=== PATIENT | male | born 1965 | race Caucasian/White ===

== ENCOUNTER 2019-06-04 05:49 | Outpatient (CLI) | payer OTHER ==
[~2019-06-04] VITALS: Ht 182.9 cm; Wt 79.4 kg
[~2019-06-04 05:49] MED LIST: B.AN1CAP; FAMO20TA73; MULT-608; PANT20TA2; PANT40TA; PARO20TA57; PARO40TA47 PO; TMZP15C
[2019-06-04] MEDS ORDERED: PANT40TA3 PO (09:27)
[2019-06-05] MEDS ORDERED: ONDN4T PO (12:40)
[2019-06-05] MEDS ORDERED: CHOL4PAC16 PO (12:40)
== END 2019-06-04 09:32 | disposition home or self-care (01) ==
LOC: PREOP 05:49
PROVIDERS: ATTEND Surgery
DX: Z01.818 Encounter for other preprocedural examination (principal)

== ENCOUNTER 2019-06-05 10:00 | Day surgery (SDC) | payer OTHER ==
[2019-06-05] VITALS (18 sets, daily range): BP systolic 105–135; BP diastolic 57–84
[~2019-06-05] VITALS: Ht 182.9 cm; Wt 79.4 kg
[~2019-06-05 10:00] MED LIST changes: -CHOL4PAC16 PO; -ONDN4T PO
[2019-06-05] MEDS ORDERED: NS IV 500 ML 500 ML ONE (10:11)
[2019-06-05] MEDS ORDERED: NS IV 500 ML 500 ML IV PRN (10:18)
[2019-06-05] MEDS ORDERED: LIDOCAINE JELLY 2% 6 ML SYRINGE MM PRN (10:30)
[2019-06-05] MEDS ORDERED: fentaNYL INJECTION 100 MCG/2 ML AMP IVP ONE (10:30)
[2019-06-05] MEDS ORDERED: HURRICAINE EXT TUBE (BENZOCAINE) XX PRN (10:30)
[2019-06-05] MEDS ORDERED: MIDAZOLAM 2 MG/2 ML (VERSED) VIAL IVP ONE (10:30)
[2019-06-05] MEDS ORDERED: fentaNYL INJECTION 100 MCG/2 ML AMP ONE ×2 (10:51)
[2019-06-05] MEDS ORDERED: LIDOCAINE JELLY 2% 6 ML SYRINGE ONE (10:51)
[2019-06-05] MEDS ORDERED: MIDAZOLAM 2 MG/2 ML (VERSED) VIAL ONE ×5 (10:52→10:53)
[2019-06-05] MEDS ORDERED: HURRICAINE EXT TUBE (BENZOCAINE) ONE (10:53)
--- NOTE | 2019-06-05 12:35 | Conscious Sedation/ASA ---
Conscious Sedation Pre-Proced Time 10:30 ASA Score 2 For ASA 3 and 4: Consider anesthesia and medical clearance. Also, for patients with a history of failed moderate sedation consider anesthesia. Airway Lungs Heart ASA score ASA 1: a normal healthy patient ASA 2: a patient with a mild systemic disease (mid diabetes, controlled hypertension, obesity ASA 3: a patient with a severe systemic disease that limits activity (angina, COPD, prior Myocardial infarction) ASA 4: a patient with an incapacitating disease that is a constant threat to life (CHF, renal failure) ASA 5: a moribund patient not expected to survive 24 hrs. (ruptured aneurysm) ASA 6: a declared brain- patient whose organs are being harvested. For emergent operations, add the letter E after the classification Mallampati Classification Grade 2 Sedation Plan Analgesia, Amnesia, Plan communicated to team members, Discussed options with patient/fam, Discussed risks with patient/fam The patient is an appropriate candidate to undergo the planned procedure, sedation, and anesthesia. The patient immediately re-assessed prior to indication. RIC CORTES MD Jun 05, 2019 12:35
--- NOTE | 2019-06-05 12:36 | Progress Note-Pre Operative ---
Pre-Operative Progress Note H&P Reviewed The H&P was reviewed, patient examined and no changes noted. Date Seen by Provider: Jun 05, 2019 Time Seen by Provider: 10:30 Date H&P Reviewed: Jun 05, 2019 Time H&P Reviewed: 10:30 Pre-Operative Diagnosis: GERD, N/V, diarrhea, family hx colon ca RIC CORTES MD Jun 05, 2019 12:36
--- NOTE | 2019-06-05 12:38 | Progress Note-Post Operative ---
Post-Operative Progess Note Surgeon (s)/Harp Action Assembler (s) Surgeon RIC CORTES MD Harp Action Assembler: none Pre-Operative Diagnosis GERD, N/V, diarrhea, family hx colon ca Post-Operative Diagnosis reflux esophagitis(stage 2), small HH(1.5cm), mild gastrtitis. mild chronic stage 2 ext and int hemorrhoids, mild sigmoid diverticulosis. Procedure & Operative Findings Date of Procedure 06/05/19 Procedure Performed/Findings EGD with bx. Colonoscopy. Anesthesia Type cs Estimated Blood Loss Estimated blood loss (mL): minimal Specimens/Packing Specimens Removed ge jxn, antrum RIC CORTES MD Jun 05, 2019 12:38
--- NOTE | 2019-06-05 12:39 | Discharge Inst-Surgical ---
D/C Lap Instructions-KIDO New, Converted, or Re-Newed RX: RX on Chart Follow Up Appt in 2 weeks Activity as tolerated High Fiber Diet 25g or more per day Avoid Alcohol, Caffeine, Spicy [place] and Acid foods. Drink 64 fluid oz or more of fluids per day. Symptoms to Report: Fever over 101 degree F, Nausea/Vomiting If any problems/questions: Contact your physician or go to Emergency Room RIC CORTES MD Jun 05, 2019 12:39
[2019-06-05] MEDS ORDERED: ONDN4T PO (12:40)
[2019-06-05] MEDS ORDERED: CHOL4PAC16 PO (12:40)
[2019-06-05] MEDS ORDERED: HYDROcodone/APAP 5 MG/325 MG (LORTAB) TAB PO PRN (12:45)
[2019-06-05] MEDS ORDERED: ACETAMINOPHEN 325 MG TABLET PO PRN (12:45)
[2019-06-05] MEDS ORDERED: ONDANSETRON 4 MG/2 ML (SDV) Z0FRAN IVP PRN (12:45)
[2019-06-05] MEDS ORDERED: morphine INJ 10 MG/ML 1ML (SYR OR VIAL) IVP PRN ×2 (12:45)
--- NOTE | 2019-06-05 21:58 | OPERATIVE REPORT ---
DATE OF SERVICE: 06/05/2019 ATTENDING VEHICLE GLASS TECHNICIAN: LIDYA Shane PREOPERATIVE DIAGNOSES: Gastroesophageal reflux disease, nausea, abdominal bloating, screening colonoscopy with family history of colon cancer. POSTOPERATIVE DIAGNOSES: Reflux esophagitis stage II, small hiatal hernia approximately 1.5 to 2 cm in size with mild gastritis, mild chronic stage II external and internal hemorrhoids and mild sigmoid diverticulosis. PROCEDURE: EGD with biopsy and colonoscopy. SURGEON: Ric Cortes MD ANESTHESIA: Conscious sedation. ESTIMATED BLOOD LOSS: Minimal. FINDINGS: Reflux esophagitis stage II, small hiatal hernia approximately 1.5 to 2 cm in size with mild gastritis, mild chronic stage II external and internal hemorrhoids and mild sigmoid diverticulosis. DISPOSITION: The patient tolerated the procedure well. INDICATIONS: The patient is a 53-year-old male, who was referred over to us for epigastric pain, reflux, diarrhea as well as nausea and bloating after eating meals. He states that he has had gastroesophageal reflux disease for greater than 10 years; however, this new issue with diet and nausea, bloating and diarrhea are new. He does have a family history of colon cancer with his mother being diagnosed with the disease at age 62. He does not report any red blood per rectum nor any dark tarry stools. He also does not report any weight loss. DESCRIPTION OF PROCEDURE: The patient was brought to the endoscopy suite, laid in the left lateral decubitus position. After adequate IV pain and sedative medications and conscious sedation anesthesia, the mouthpiece was applied. The endoscope was then placed in the mouth, visualizing the pharynx and hypopharyngeal region. Vocal cords, epiglottis and vallecula were identified and appeared to be normal. The endoscope was then gently intubated into the esophageal opening and esophagus was insufflated. The endoscope was then advanced through the first, second and third portion of esophagus. At the level of the GE junction, a reflux esophagitis stage II was identified. There were no ulcers or strictures identified in this region. A biopsy was taken with forceps with visualization of good hemostasis. The endoscope was then advanced into the stomach and endoscope retroflexed visualizing a small hiatal hernia approximately, there was a mild gastritis. No formal ulcerations, polyps, nor any neoplasms. A biopsy was taken of the stomach antrum with forceps with visualization of good hemostasis. Endoscope was then advanced to the pylorus and the first and second portion of the duodenum, which appeared normal with no distal obstructions. The endoscope was then slowly withdrawn while taking a second look and suctioning of residual air with no additional findings. Under the same anesthesia, we then proceeded with colonoscopy portion of the procedure. A digital rectal examination was performed, which revealed mild chronic stage II external and internal hemorrhoids, not actively edematous nor inflamed and no bleeding. Normal sphincter tone was felt and there were no palpable masses. Prostate gland was palpable and appeared normal. The endoscope was then intubated to the anus and rectum gently insufflated. The endoscope was then advanced to the valves of [place] of the rectum with no polyps or any neoplasms identified. Through the sigmoid colon, a mild sigmoid diverticulosis was identified. There were no mucosal inflammatory changes to indicate any active diverticulitis. The endoscope was then advanced to the remainder of the descending, transverse and ascending colon to the cecum. These segments were normal. There were no polyps or any neoplasms identified throughout the colon or rectum. The endoscope was then slowly withdrawn while taking a second look and suctioning of residual air with no additional findings. The patient tolerated the procedure well. We will recommend continued medical therapy with a high fiber diet with at least 30 grams of fiber daily as well as significant amounts of water to promote soft stools on a daily basis. We will recommend a followup colonoscopy in approximately five years. We will also await the ultrasound report, which was done recently. Job ID: [id number] DocumentID: [id number] Dictated Date: 06/05/2019 11:53:29 Circuit Judge Date: 06/05/2019 21:57:38 Dictated By: RIC CORTES MD
== END 2019-06-05 13:13 | disposition home or self-care (01) ==
LOC: ENDO 10:00
PROVIDERS: ATTEND Surgery
DX: K21.9 Gastro-esophageal reflux disease without esophagitis (principal); K44.9 Diaphragmatic hernia without obstruction or gangrene; K29.70 Gastritis, unspecified, without bleeding; K64.8 Other hemorrhoids; K64.1 Second degree hemorrhoids; K57.30 Diverticulosis of large intestine without perforation or abscess without bleeding; F17.210 Nicotine dependence, cigarettes, uncomplicated; Z79.899 Other long term (current) drug therapy; Z80.0 Family history of malignant neoplasm of digestive organs; Z83.79 Family history of other diseases of the digestive system; Z82.49 Family history of ischemic heart disease and other diseases of the circulatory system

== ENCOUNTER → 2019-06-05 | Outpatient (CLI) | payer OTHER ==
[~2019-06-05] MED LIST changes: +CHOL4PAC16 PO; +ONDN4T PO; +PANT40TA3 PO
--- NOTE | 2019-06-05 10:55 | Diagnostic Imaging Report ---
PROCEDURE: US Gallbladder. TECHNIQUE: Multiple real-time grayscale images were obtained over the right upper quadrant in various projections. INDICATION: Right quadrant pain. FINDINGS: Liver measures 15.2 cm in size. No discrete liver mass is detected. The portal vein is patent and shows normal direction of flow. Gallbladder is without stones or sludge. No wall thickening or biliary duct dilatation is seen. Visualized pancreas is unremarkable. Right kidney is without evidence of calculi or hydronephrosis. There is no ascites. IMPRESSION: Unremarkable gallbladder ultrasound. Dictated by: Dictated on workstation # [id number]
== END ==
LOC: RAD 08:54
PROVIDERS: ATTEND Surgery
DX: R10.11 Right upper quadrant pain (principal)
CPT/HCPCS: 76705

== ENCOUNTER → 2019-06-18 | Outpatient (CLI) | payer OTHER ==
[~2019-06-18] MED LIST changes: +CATHETER FLUSH 10 ML SYR IV PRN; +CHOL4PAC16 PO; +ONDN4T PO
--- NOTE | 2019-06-18 13:31 | Diagnostic Imaging Report ---
Indication: Right upper quadrant pain. Patient was administered 5.4 mCi technetium 99m Choletec intravenously and imaging over the abdomen was performed. At 30 minutes patient ingested 8 ounces of Ensure and a gallbladder ejection fraction was calculated. There is homogeneous uptake of activity by the liver with prompt excretion of activity into the common duct and gallbladder. Normal passage of activity into the small bowel is seen. Gallbladder ejection fraction is abnormally low at 24%. Impression: 1. Patent cystic duct and common bile duct. 2. Abnormally low gallbladder ejection fraction of 24%. Dictated by: Dictated on workstation # [id number]
== END ==
LOC: CARD 11:23
PROVIDERS: ATTEND Surgery
DX: K82.8 Other specified diseases of gallbladder (principal); R10.11 Right upper quadrant pain
CPT/HCPCS: 78227

== ENCOUNTER 2019-08-27 05:32 | Outpatient (CLI) | payer OTHER ==
[~2019-08-27] VITALS: Ht 182.9 cm; Wt 79.5 kg
[~2019-08-27 05:32] MED LIST changes: -CATHETER FLUSH 10 ML SYR IV PRN
[2019-09-03] MEDS ORDERED: HYDR-3816 PO (08:23)
== END 2019-08-27 13:22 | disposition home or self-care (01) ==
LOC: PREOP 05:32
PROVIDERS: ATTEND Surgery
DX: Z01.818 Encounter for other preprocedural examination (principal)